=== PATIENT | female | born 1980 | race Caucasian/White ===

== ENCOUNTER 2017-10-05 02:39 | Emergency (ER) | payer OTHER ==
[~2017-10-05] VITALS: Ht 172.7 cm; Wt 68.0 kg
[~2017-10-05 02:39] MED LIST: CALCA500S6 PO; EPIN.3I IM; PREN-16 PO; [UNRECOGNIZED DRUG - OTHER]
[2017-10-05] MEDS ORDERED: ALPR.5 PO (03:05)
[2017-10-05] MEDS ORDERED: PRED20 PO (03:06)
[2017-10-05] MEDS ORDERED: DIPH50 PO (03:08)
[2017-10-05 04:03] LABS: BASOPHILS ABSOLUTE AUTO 0.07 K/mm3 (0.00-0.23); BASOPHILS PERCENT AUTO 1 % (0-2); EOSINOPHILS ABSOLUTE AUTO 0.12 K/mm3 (0.00-0.68); EOSINOPHILS PERCENT AUTO 2 % (0-6); Hematocrit 44.9 % (33.0-51.0); Hemoglobin 15.8 g/dL (11.5-16.0); IMMATURE GRAN ABSOLUTE AUTO 0.01 K/mm3 (0.00-0.10); IMMATURE GRAN PERCENT AUTO 0 % (0-1); LYMPHOCYTES ABSOLUTE AUTO 1.58 K/mm3 (0.84-5.20); LYMPHOCYTES PERCENT AUTO 23 % (21-46); MONOCYTES ABSOLUTE AUTO 0.39 K/mm3 (0.16-1.47); MONOCYTES PERCENT AUTO 6 % (4-13); Mean Corpuscular HGB 31.4 pg (26.0-34.0); Mean Corpuscular HGB Conc 35.2 g/dL (31.5-36.5); Mean Corpuscular Volume 89 fL (80-100); Mean Platelet Volume 10.4 fL (9.1-12.4); NEUTROPHILS ABSOLUTE AUTO 4.64 K/mm3 (1.96-9.15); NEUTROPHILS PERCENT AUTO 68 % (41-73); Platelet Count 177 K/mm3 (150-400); RDW Coefficient Variation 12.2 % (11.7-14.2); RDW Standard Deviation 40.1 fL (35.1-46.3); Red Blood Cell Count 5.03 M/mm3 (3.80-5.20); White Blood Cell Count 6.81 K/mm3 (4.00-11.30)
[2017-10-05 04:28] LABS: Alanine Aminotransfer (ALT/SGP 32 U/L (12-78); Albumin, Blood 4.1 g/dL (3.4-5.0); Albumin/Globulin Ratio 1.2 (0.8-1.8); Alk Phos 38 U/L (50-136); Anion Gap 11 mmol/L (6-16); Aspartate Aminotrans (AST/SGOT 22 U/L (12-37); Bilirubin, Total 0.5 mg/dL (0.1-1.0); Blood Urea Nitrogen 9 mg/dL (8-24); Bun/Creatinine Ratio 12.1 (12.0-20.0); CO2, Blood 23 mmol/L (21-32); Calcium, Blood 8.9 mg/dL (8.5-10.1); Chloride, Blood 107 mmol/L (98-108); Creatinine, Blood 0.75 mg/dL (0.40-1.00); Globulin, Blood 3.3 g/dL (2.2-4.0); Glomerular Filtration Rate >60 (60-); Glucose, Blood 91 mg/dL (70-99); Potassium, Blood 3.3 mmol/L (3.5-5.5); Sodium, Blood 141 mmol/L (136-145); Total Protein, Blood 7.4 g/dL (6.4-8.2); Troponin I <0.015 ng/mL (0.000-0.040)
== END 2017-10-05 05:00 | disposition home or self-care (01) ==
LOC: ER 02:39
PROVIDERS: Emergency Medicine
DX: J30.2 Other seasonal allergic rhinitis (principal); F41.9 Anxiety disorder, unspecified; F43.9 Reaction to severe stress, unspecified; Z88.0 Allergy status to penicillin; Z88.8 Allergy status to other drugs, medicaments and biological substances; Z79.899 Other long term (current) drug therapy; Z91.030 Bee allergy status; Z79.52 Long term (current) use of systemic steroids
CPT/HCPCS: 36415; 71046; 80053; 84484; 85025; 85379; 93005; 93010; 94640; 96374; 96375; 99283; J1100; J2060

== ENCOUNTER 2019-07-15 08:52 | Emergency (ER) | payer OTHER ==
[~2019-07-15] VITALS: Ht 172.7 cm; Wt 72.6 kg
[~2019-07-15 08:52] MED LIST changes: +ALPR.5 PO; +DIPH50 PO; +PRED20 PO
[2019-07-15 09:33] LABS: Source, Urine Clean Catch
[2019-07-15 09:41] LABS: Bilirubin, Urine Neg (Neg); Blood, Urine Neg (Neg); Glucose Qualitative, Urine Neg (Neg); Ketones, Urine Neg (Neg); Leukocyte Esterase, Urine Neg (Neg); Nitrite, Urine Neg (Neg); Protein, Urine Neg (Neg); Urobilinogen, Urine NORM (Normal)
[2019-07-15 09:42] LABS: Appearance, Urine Clear (Clear); Color, Urine Yellow (P-Yellow)
[2019-07-15 09:50] LABS: BASOPHILS ABSOLUTE AUTO 0.02 K/mm3 (0.00-0.23); BASOPHILS PERCENT AUTO 0 % (0-2); EOSINOPHILS PERCENT AUTO 3 % (0-6); Hematocrit 44.5 % (33.0-51.0); Hemoglobin 14.9 g/dL (11.5-16.0); IMMATURE GRAN ABSOLUTE AUTO 0.01 K/mm3 (0.00-0.10); IMMATURE GRAN PERCENT AUTO 0 % (0-1); LYMPHOCYTES ABSOLUTE AUTO 2.31 K/mm3 (0.84-5.20); LYMPHOCYTES PERCENT AUTO 36 % (21-46); MONOCYTES ABSOLUTE AUTO 0.48 K/mm3 (0.16-1.47); MONOCYTES PERCENT AUTO 8 % (4-13); Mean Corpuscular HGB 30.7 pg (26.0-34.0); Mean Corpuscular HGB Conc 33.5 g/dL (31.5-36.5); Mean Corpuscular Volume 92 fL (80-100); Mean Platelet Volume 10.8 fL (9.1-12.4); NEUTROPHILS ABSOLUTE AUTO 3.42 K/mm3 (1.96-9.15); NEUTROPHILS PERCENT AUTO 53 % (41-73); Platelet Count 217 K/mm3 (150-400); RDW Standard Deviation 40.6 fL (35.1-46.3); Red Blood Cell Count 4.86 M/mm3 (3.80-5.20); White Blood Cell Count 6.44 K/mm3 (4.00-11.30)
[2019-07-15 10:12] LABS: Alanine Aminotransfer (ALT/SGP 27 U/L (12-78); Albumin, Blood 3.6 g/dL (3.4-5.0); Albumin/Globulin Ratio 1.1 (0.8-1.8); Alk Phos 39 U/L (50-136); Anion Gap 5 mmol/L (6-16); Aspartate Aminotrans (AST/SGOT 26 U/L (12-37); Bilirubin, Total 0.6 mg/dL (0.1-1.0); Blood Urea Nitrogen 7 mg/dL (8-24); Bun/Creatinine Ratio 9.5 (12.0-20.0); CO2, Blood 25 mmol/L (21-32); Calcium, Blood 8.5 mg/dL (8.5-10.1); Chloride, Blood 110 mmol/L (98-108); Creatinine, Blood 0.74 mg/dL (0.40-1.00); Globulin, Blood 3.2 g/dL (2.2-4.0); Glomerular Filtration Rate >60 (60-); Glucose, Blood 103 mg/dL (70-99); Potassium, Blood 3.8 mmol/L (3.5-5.5); Sodium, Blood 140 mmol/L (136-145); Total Protein, Blood 6.8 g/dL (6.4-8.2)
[2019-07-15] MEDS ORDERED: ONDA4ODT MM (14:06)
[2019-07-15] MEDS ORDERED: Percocet 5-3251 EACH PO (14:06)
== END 2019-07-15 14:15 | disposition home or self-care (01) ==
LOC: ER 08:52
PROVIDERS: Emergency Medicine
DX: N83.01 Follicular cyst of right ovary (principal); N83.202 Unspecified ovarian cyst, left side; F41.9 Anxiety disorder, unspecified; F17.200 Nicotine dependence, unspecified, uncomplicated; Z79.899 Other long term (current) drug therapy
CPT/HCPCS: 36415; 74177; 76830; 76856; 80053; 81003; 81025; 83690; 85025; 96361; 96374-59; 96375; 96376; 99284-25; J1170; J2405; J2550; J7030; Q9967

== ENCOUNTER → 2019-08-27 | Outpatient (CLI) | payer OTHER ==
[~2019-08-27] MED LIST changes: +ONDA4ODT MM; +Percocet 5-3251 EACH PO
[2019-08-27 12:32] LABS: BASOPHILS ABSOLUTE AUTO 0.06 K/mm3 (0.00-0.23); BASOPHILS PERCENT AUTO 1 % (0-2); EOSINOPHILS ABSOLUTE AUTO 0.15 K/mm3 (0.00-0.68); EOSINOPHILS PERCENT AUTO 2 % (0-6); Hemoglobin 15.3 g/dL (11.5-16.0); IMMATURE GRAN ABSOLUTE AUTO 0.01 K/mm3 (0.00-0.10); IMMATURE GRAN PERCENT AUTO 0 % (0-1); LYMPHOCYTES ABSOLUTE AUTO 3.57 K/mm3 (0.84-5.20); LYMPHOCYTES PERCENT AUTO 42 % (21-46); MONOCYTES ABSOLUTE AUTO 0.56 K/mm3 (0.16-1.47); MONOCYTES PERCENT AUTO 7 % (4-13); Mean Corpuscular HGB 30.8 pg (26.0-34.0); Mean Corpuscular HGB Conc 34.8 g/dL (31.5-36.5); Mean Corpuscular Volume 89 fL (80-100); NEUTROPHILS ABSOLUTE AUTO 4.07 K/mm3 (1.96-9.15); NEUTROPHILS PERCENT AUTO 48 % (41-73); RDW Coefficient Variation 12.1 % (11.7-14.2); RDW Standard Deviation 39.3 fL (35.1-46.3); Red Blood Cell Count 4.97 M/mm3 (3.80-5.20); White Blood Cell Count 8.42 K/mm3 (4.00-11.30)
[2019-08-27 12:40] LABS: Mean Platelet Volume 13.8 fL (9.1-12.4)
[2019-08-27 12:56] LABS: Alanine Aminotransfer (ALT/SGP 27 U/L (12-78); Albumin/Globulin Ratio 1.2 (0.8-1.8); Alk Phos 41 U/L (40-126); Anion Gap 13 mmol/L (6-16); Aspartate Aminotrans (AST/SGOT 19 U/L (12-37); Bilirubin, Total 0.6 mg/dL (0.1-1.0); Blood Urea Nitrogen 12 mg/dL (8-24); Bun/Creatinine Ratio 16.9 (12.0-20.0); CO2, Blood 23 mmol/L (21-32); Calcium, Blood 9.7 mg/dL (8.5-10.1); Chloride, Blood 104 mmol/L (98-108); Creatinine, Blood 0.71 mg/dL (0.40-1.00); Globulin, Blood 3.4 g/dL (2.2-4.0); Glomerular Filtration Rate >60 (60-); Glucose, Blood 97 mg/dL (70-99); Potassium, Blood 3.4 mmol/L (3.5-5.5); Sodium, Blood 140 mmol/L (136-145); Thyroid Stimulating Hormone 1.658 uIU/mL (0.360-4.800); Total Protein, Blood 7.4 g/dL (6.4-8.2)
[2019-08-27 13:05] LABS: Troponin I <0.017 ng/mL (0.000-0.040)
[2019-08-27 15:18] LABS: Hematocrit 41.2 % (33.0-51.0); Hemoglobin 14.6 g/dL (11.5-16.0); Mean Corpuscular Volume 89 fL (80-100); Red Blood Cell Count 4.65 M/mm3 (3.80-5.20); White Blood Cell Count 7.56 K/mm3 (4.00-11.30)
[2019-08-27 15:19] LABS: Mean Corpuscular HGB 31.4 pg (26.0-34.0); Mean Corpuscular HGB Conc 35.4 g/dL (31.5-36.5); RDW Coefficient Variation 11.9 % (11.7-14.2); RDW Standard Deviation 38.8 fL (35.1-46.3)
[2019-08-27 15:20] LABS: Mean Platelet Volume 10.4 fL (9.1-12.4); Platelet Count 172 K/mm3 (150-400)
[2019-08-27 15:22] LABS: NEUTROPHILS PERCENT AUTO 60 % (41-73)
[2019-08-27 15:23] LABS: BASOPHILS PERCENT AUTO 1 % (0-2); EOSINOPHILS PERCENT AUTO 1 % (0-6); IMMATURE GRAN PERCENT AUTO 0 % (0-1); LYMPHOCYTES PERCENT AUTO 31 % (21-46); MONOCYTES PERCENT AUTO 7 % (4-13)
[2019-08-27 15:24] LABS: BASOPHILS ABSOLUTE AUTO 0.06 K/mm3 (0.00-0.23); IMMATURE GRAN ABSOLUTE AUTO 0.01 K/mm3 (0.00-0.10); LYMPHOCYTES ABSOLUTE AUTO 2.32 K/mm3 (0.84-5.20); MONOCYTES ABSOLUTE AUTO 0.55 K/mm3 (0.16-1.47); NEUTROPHILS ABSOLUTE AUTO 4.53 K/mm3 (1.96-9.15)
== END | disposition home or self-care (01) ==
LOC: LAB SHORT 12:23 → LAB EV 12:23
PROVIDERS: Physician Assistant
DX: R07.9 Chest pain, unspecified (principal); R53.83 Other fatigue
CPT/HCPCS: 80053; 83690; 84443; 84484; 85025; 85379

== ENCOUNTER 2020-02-14 10:21 | Day surgery (SDC) | payer OTHER ==
[~2020-02-14] VITALS: Ht 172.7 cm; Wt 78.2 kg
[~2020-02-14 10:21] MED LIST changes: +IBUP400 PO; +ONDA4ODT SL
[2020-02-14] MEDS ORDERED: SENNA LAXATIVE8.6 MG PO (11:11)
--- NOTE | 2020-02-14 13:48 | NUR ---
02/14/20 0018 Lelo Xiong PT C/O 8/10 BURNING PAIN ON BOTTOM SIDE OF OPERATIVE WRIST. PT TEARFUL. AFTER A TOTAL OF 250MCG OF FENTANYL (IN 50MCG DOSES) PT STATES PAIN NOW 4/10 AND TOLERABLE. PT MEDICATED WITH ORAL DOSE OF PERCOCET 5/325MG PER PHYSICIAN ORDERS AFTER EATING SOME CRACKERS. PT CALM NOW, IN ROOM. VSS. WILL CONTINUE TO MONITOR.
== END 2020-02-14 14:29 | disposition home or self-care (01) ==
LOC: ORSCSDS 10:21
PROVIDERS: Orthopaedic Surgery
PROC: 0PSJ04Z Reposition Left Radius with Internal Fixation Device, Open Approach (ICD-10-PCS; principal; 2020-02-14 11:30)
DX: S52.501A Unspecified fracture of the lower end of right radius, initial encounter for closed fracture (principal); S52.601A Unspecified fracture of lower end of right ulna, initial encounter for closed fracture; F17.210 Nicotine dependence, cigarettes, uncomplicated; Z79.899 Other long term (current) drug therapy
CPT/HCPCS: C1713; J0171; J1100; J1885; J2250; J2405; J2704; J3010; J3370; J7120

== ENCOUNTER 2021-01-30 23:55 | Inpatient (IN) | payer OTHER ==
[~2021-01-30] VITALS: Ht 172.7 cm; Wt 76.7 kg
[~2021-01-30 23:55] MED LIST changes: +SENNA LAXATIVE8.6 MG PO
[2021-01-31 00:49] LABS: BASOPHILS ABSOLUTE AUTO 0.01 K/mm3 (0.00-0.23); BASOPHILS PERCENT AUTO 0 % (0-2); EOSINOPHILS PERCENT AUTO 0 % (0-6); Hematocrit 37.4 % (33.0-51.0); Hemoglobin 12.6 g/dL (11.5-16.0); Mean Corpuscular HGB 30.4 pg (26.0-34.0); Mean Corpuscular HGB Conc 33.7 g/dL (31.5-36.5); Mean Corpuscular Volume 90 fL (80-100); Mean Platelet Volume 11.9 fL (9.1-12.4); Platelet Count 201 K/mm3 (150-400); RDW Coefficient Variation 12.7 % (11.7-14.2); RDW Standard Deviation 42.2 fL (35.1-46.3); Red Blood Cell Count 4.15 M/mm3 (3.80-5.20); White Blood Cell Count 8.31 K/mm3 (4.00-11.30)
[2021-01-31 00:52] LABS: IMMATURE GRAN ABSOLUTE AUTO 0.08 K/mm3 (0.00-0.10); IMMATURE GRAN PERCENT AUTO 1 % (0-1); LYMPHOCYTES PERCENT AUTO 11 % (21-46); MONOCYTES ABSOLUTE AUTO 0.61 K/mm3 (0.16-1.47); MONOCYTES PERCENT AUTO 7 % (4-13); NEUTROPHILS ABSOLUTE AUTO 6.71 K/mm3 (1.96-9.15); NEUTROPHILS PERCENT AUTO 81 % (41-73)
[2021-01-31 01:10] LABS: Troponin I <0.015 ng/mL (0.000-0.040)
[2021-01-31 01:15] LABS: Alanine Aminotransfer (ALT/SGP 36 U/L (12-78); Albumin, Blood 2.5 g/dL (3.4-5.0); Albumin/Globulin Ratio 0.6 (0.8-1.8); Alk Phos 71 U/L (50-136); Anion Gap 8 mmol/L (6-16); Aspartate Aminotrans (AST/SGOT 31 U/L (12-37); Bilirubin, Total <0.1 mg/dL (0.1-1.0); Blood Urea Nitrogen 10 mg/dL (8-24); Bun/Creatinine Ratio 17.8 (12.0-20.0); CO2, Blood 26 mmol/L (21-32); Calcium, Blood 8.5 mg/dL (8.5-10.1); Chloride, Blood 106 mmol/L (98-108); Creatinine, Blood 0.56 mg/dL (0.40-1.00); Glomerular Filtration Rate >60 (60-); Glucose, Blood 169 mg/dL (70-99); Potassium, Blood 3.5 mmol/L (3.5-5.5); Sodium, Blood 140 mmol/L (136-145); Total Protein, Blood 6.5 g/dL (6.4-8.2)
[2021-01-31] MEDS ORDERED: PRED1 PO (03:44)
[2021-01-31] MEDS ORDERED: IVERMECTIN3 MG PO (03:44)
[2021-01-31 05:07] LABS: Free Thyroxine 0.94 ng/dL (0.70-1.60); Thyroid Stimulating Hormone 0.788 uIU/mL (0.360-4.800)
[2021-01-31 08:14] LABS: Hematocrit 35.7 % (33.0-51.0); Hemoglobin 12.1 g/dL (11.5-16.0); Mean Corpuscular HGB 30.6 pg (26.0-34.0); Mean Corpuscular HGB Conc 33.9 g/dL (31.5-36.5); Mean Corpuscular Volume 90 fL (80-100); Mean Platelet Volume 12.1 fL (9.1-12.4); Platelet Count 206 K/mm3 (150-400); RDW Coefficient Variation 12.7 % (11.7-14.2); RDW Standard Deviation 42.4 fL (35.1-46.3); Red Blood Cell Count 3.95 M/mm3 (3.80-5.20); White Blood Cell Count 7.99 K/mm3 (4.00-11.30)
[2021-01-31 08:31] LABS: Alanine Aminotransfer (ALT/SGP 47 U/L (12-78); Albumin, Blood 2.5 g/dL (3.4-5.0); Albumin/Globulin Ratio 0.7 (0.8-1.8); Alk Phos 72 U/L (50-136); Anion Gap 6 mmol/L (6-16); Aspartate Aminotrans (AST/SGOT 44 U/L (12-37); Bilirubin, Total 0.1 mg/dL (0.1-1.0); Blood Urea Nitrogen 9 mg/dL (8-24); Bun/Creatinine Ratio 15.5 (12.0-20.0); CO2, Blood 26 mmol/L (21-32); Calcium, Blood 8.4 mg/dL (8.5-10.1); Chloride, Blood 110 mmol/L (98-108); Creatinine, Blood 0.58 mg/dL (0.40-1.00); Globulin, Blood 3.6 g/dL (2.2-4.0); Glomerular Filtration Rate >60 (60-); Glucose, Blood 109 mg/dL (70-99); Potassium, Blood 3.4 mmol/L (3.5-5.5); Sodium, Blood 142 mmol/L (136-145); Total Protein, Blood 6.1 g/dL (6.4-8.2)
[2021-01-31 08:48] LABS: BAND PERCENT MAN 1 % (0-8); BASOPHILS PERCENT MAN 0 % (0-2); EOSINOPHILS PERCENT MAN 0 % (0-6); LYMPHOCYTES ABSOLUTE MAN 1.19 K/mm3 (0.84-5.20); LYMPHOCYTES PERCENT MAN 15 % (21-46); MONOCYTES ABSOLUTE MAN 0.47 K/mm3 (0.16-1.47); MONOCYTES PERCENT MAN 6 % (4-13); MYELOCYTE ABSOLUTE MAN 0.07 K/mm3 (0.00-0.00); MYELOCYTE PERCENT MAN 1 % (0-0); NEUTROPHILS ABSOLUTE MAN 6.23 K/mm3 (1.96-9.15); SEG NEUTROPHILS PERCENT MAN 77 % (41-73); TOTAL CELLS COUNTED 100
--- NOTE | 2021-01-31 17:45 | NUR ---
SUMMARY PT CAME FROM [facility] AT 1130 WITH TEMP PACER TO [facility] AT 60CM. TEMP PACER WAS SET AT 40 WITH SENSITIVITY 2 AND OUTPUT 2 BUT HR STARTED DROPPING TO 37. PT WAS ASYMPTOMATIC BUT NO PACER SPIKES NOTED. CALLED DR. DUKE WHO CAME AND ADJUSTED IT TO ABOUT 45CM. NOW PACER IS CAPTURING WELL. PT RECEIVED A DOSE OF FENTANYL FOR PAIN. PT TRANSFERED TO PCU 12 ICU STATUS. REPORT GIVEN TO TAWANDA DUARTE.
--- NOTE | 2021-01-31 18:47 | NUR ---
ASSUMED CARE NOTE: ASSUMED CARE OF PT AT 1700, RECEVIED REPORT FROM MARILY DUARTE. PT IS ALERT AND ORIENTEDX4. PT HAS TEMP PACEMAKER STTINGS OF 6, SENSITIVITY 2, RATE 40. BP STABLE AT THIS TIME. TEMP PACEMAKER TO RIGHT SIDE, DRESSING C/D/I, NO SWELLING, OR OOZING TO SITE. PT IS ON RA, WITH SPO2 ABOVE 90% NO RESP DISTRESS NOTED. PT MEDICATED FOR PAIN BEFORE ARRIVING TO UNIT, STATES PAIN IS 3/10 AT THIS TIME. PT ORIENTED TO ROOM, BED AT LOWEST LEVEL, CALL LIGHT WITHIN REACH.
[2021-02-01 03:52] LABS: Hematocrit 37.8 % (33.0-51.0); Mean Corpuscular HGB 30.5 pg (26.0-34.0); Mean Corpuscular HGB Conc 34.4 g/dL (31.5-36.5); Mean Corpuscular Volume 89 fL (80-100); Platelet Count 249 K/mm3 (150-400); RDW Coefficient Variation 12.9 % (11.7-14.2); RDW Standard Deviation 41.7 fL (35.1-46.3); Red Blood Cell Count 4.26 M/mm3 (3.80-5.20); White Blood Cell Count 8.44 K/mm3 (4.00-11.30)
[2021-02-01 04:15] LABS: Albumin, Blood 2.6 g/dL (3.4-5.0); Anion Gap 7 mmol/L (6-16); Blood Urea Nitrogen 13 mg/dL (8-24); Bun/Creatinine Ratio 20.8 (12.0-20.0); CO2, Blood 27 mmol/L (21-32); Calcium, Blood 8.3 mg/dL (8.5-10.1); Chloride, Blood 106 mmol/L (98-108); Creatinine, Blood 0.63 mg/dL (0.40-1.00); Glomerular Filtration Rate >60 (60-); Glucose, Blood 114 mg/dL (70-99); Phosphorus, Blood 3.1 mg/dL (2.5-4.9); Potassium, Blood 3.9 mmol/L (3.5-5.5); Sodium, Blood 140 mmol/L (136-145); Troponin I <0.015 ng/mL (0.000-0.040)
[2021-02-01 06:15] LABS: BAND PERCENT MAN 1 % (0-8); BASOPHILS PERCENT MAN 0 % (0-2); EOSINOPHILS PERCENT MAN 0 % (0-6); LYMPHOCYTES % ATYPICAL MANUAL 1 % (0-0); LYMPHOCYTES ABSOLUTE MAN 1.51 K/mm3 (0.84-5.20); LYMPHOCYTES PERCENT MAN 17 % (21-46); MONOCYTES ABSOLUTE MAN 0.67 K/mm3 (0.16-1.47); MONOCYTES PERCENT MAN 8 % (4-13); MYELOCYTE ABSOLUTE MAN 0.08 K/mm3 (0.00-0.00); MYELOCYTE PERCENT MAN 1 % (0-0); NEUTROPHILS ABSOLUTE MAN 6.16 K/mm3 (1.96-9.15); SEG NEUTROPHILS PERCENT MAN 72 % (41-73); TOTAL CELLS COUNTED 100
--- NOTE | 2021-02-01 06:54 | NUR ---
SHIFT SUMMARY PT RESTED THROUGHOUT NIGHT, PRN FENTANYL ADMINISTERED FOR PAIN, HEATED KPAD APPLIED TO BACK WITH GOOD EFFECT. PT ORIENTED x4, PT IS ANXIOUS AND DEPRESSED, TEARFUL AT TIMES, EXPRESSES MISSING HER KIDS AND WORRIED ABOUT PROGNOSIS OF CURRENT CONDITION. O2 SATURATIONS> 90% ON RA. MONITOR SHOWS OCCASSIONALLY PACED RHYTHM, HR 40-45, BP STABLE, PT DENIES CP AND SOB BREATH, REMAINS FATIGUED. [facility] TEMP PACER SITE STABLE, DRESSING C/D/I. PT TOLERATING PO INTAKE, NO BM THIS SHIFT. PT USES BEDPAN TO VOID WITH ASSISTANCE. CALL LIGHT WITHIN REACH, PT USING [facility].
--- NOTE | 2021-02-01 07:15 | NUR ---
Assumed care of pt at 0700 from Blanca DUARTE.
--- NOTE | 2021-02-01 13:30 | NUR ---
Dr Van in to see pt. States pt is okay for out of bed activity. Additionally, he changed pacemaker rate to 30 BPM. Currently, pt's HR is 50s. This RN assisted pt to sit up in chair, pt tolerated well.
--- NOTE | 2021-02-01 18:24 | NUR ---
SUMMARY Pt A&O x 4. Answers questions, follows commands, verbalizes needs. Pleasant and cooperative with care. OOB for about 3 hours this shift to sit in chair. Tolerates activity well with verbal cues and one person assist. Pt has temporary pacemaker in place. mA 6, sensitivity 2, rate has been decreased down to [address] Van. Few pacer spikes noted on telemetry. Rate 40s-50s. Overall, pt feeling weak but free of lightheadedness and dizzinesss. BP stable. Pt on room air. Bed in lowest position. Call light in reach. Pt denies need at this time.
--- NOTE | 2021-02-01 21:00 | NUR ---
ASSUMPTION OF CARE PT AWAKE IN BED, APPEARS IN MUCH BETTER SPIRITS, PT COMMENTED THAT SHE WAS HAPPY TO BE ABLE TO SEE HER TODAY AND GET UP OUT OF BED. PT REMAINS ORIENTED x4, CALM AND COOPERATIVE, REPORTS PAIN IS MUCH IMPROVED. O2 SATURATIONS REMAIN> 90% ON RA. MONITOR SHOWS SINUS RHYTHM WITH HR 40'S-50'S, NO PACED BEATS AT THIS TIME. TEMPORARY PACER TO [facility] REMAINS IN PLACE, OUT APPROX 40-45cm, GAUZE AND TEGADERM DRESSING REMAINS IN PLACE. PACER SET TO mA 6, SENSITIVITY 2 AND RATE 30. PT DENIES CP/SOB, CONTINUES TO FEEL WEAK AND FATIGUED BUT OVERALL STS SHE FEELS THAT SHE'S IMPROVING. PT TOLERATING PO INTAKE, UP TO BSC TO VOID. CALL LIGHT WITHIN REACH, PT USING APPROPRIATELY.
--- NOTE | 2021-02-02 06:33 | NUR ---
SHIFT SUMMARY PT SLEPT VERY LITTLE THIS SHIFT, REMAINS ORIENTED x4, ANXIOUS AT TIMES. PT REMAINS ON ROOM AIR. PTS HR INITIALLY SUSTAINED IN THE 40'S-50'S, WHILE SLEEPING HR DECREASED AND SUSTAINED 35-40. RIJ TEMP REMAINS IN PLACE, DRESSING C/D/I. PT TOLERATING PO INTAKE. PT ONE PERSON ASSIST TO CHAIR AND BSC. CALL LIGHT WITHIN REACH, PT USING APPROPRIATELY.
--- NOTE | 2021-02-02 07:15 | NUR ---
Assumed care of pt at 0700. Report received from Blanca DUARTE. Pt ICU status due to transvenous pacemaker, however in room PCU 12.
--- NOTE | 2021-02-02 17:00 | NUR ---
Dr Van in to see pt. Provider removed pacemaker wire and sheath from RIJ. Pt tolerated well. Pressure held for 10 mins. Dressed with sterile gauze and tegaderm.
--- NOTE | 2021-02-02 18:30 | NUR ---
SUMMARY Pt A&O x 4. Answers questions. Follows commands. Verbalizes needs. Pleasant and cooperative with care. Pt on room air. SpO2 90% or greater. SB-SR per monitor. No pacemaker spikes noted this shift. Dr Van removed pacemaker wire and sheath from pt. Pt tolerated this well. Pt's mom in to see pt and visit today. Pt OOB several times to sit in chair and use BSC. Bed in lowest position. Call light in reach. Pt denies need at this time.
--- NOTE | 2021-02-03 05:57 | NUR ---
SHIFT SUMMARY PT REPORTS NOT SLEEPING WELL, PT IS ANXIOUS TO BE ABLE TO GO HOME. PT REMAINS ALERT AND ORIENTED, CALM AND COOPERATIVE. O2 SATURATIONS> 90% ON RA. MONITOR SHOWS SINUS RHYTHM HR 50'S-60'S WHILE AWAKE AND 40'S WHILE RESTING. PT DENIES CP BUT REPORTS A MILD CHEST DISCOMFORT, DENIES SOB. PTS STRENGTH IMPROVING, SBA TO BSC. PT TOLERATING PO INTAKE, REPORTS CONSTIPATION, DENIES ISSUES.
--- NOTE | 2021-02-03 07:30 | NUR ---
Assumed care of pt at 0700 from Blanca DUARTE. Pt ICU status, currently in room PCU 12. Awaiting plan from hospitalist for potential discharge today.
--- NOTE | 2021-02-03 10:52 | NUR ---
Dr Nowak in to see patient. Provider stated pt will discharge home today.
[2021-02-03] MEDS ORDERED: Acetaminophen650 M1 PO (12:19)
--- NOTE | 2021-02-03 12:48 | NUR ---
Discharge education given to patient and her spouse. States she plans on establishing primary care provider as Dr Lisa Edwards. States understanding to stop prednisone and ivermectin. Educated on wound care for right neck s/p venous sheath removal from right IJ on 02/02. IV access removed. Tele mario'ericka.
--- NOTE | 2021-02-03 13:07 | NUR ---
Pt departed from unit at 1258 via wheelchair, accompanied by spouse and Sheila DUARTE
== END 2021-02-03 13:00 | disposition home or self-care (01) | DRG 177 ==
LOC: ER 23:55 → ERHOLD 01-31 03:31 → ICUE 01-31 11:22 → PCU 01-31 17:45
PROVIDERS: Emergency Medicine; Family Medicine; Internal Medicine Cardiovascular Disease; Student in an Organized Health Care Education/Training Program; ADMIT Internal Medicine
PROC: 8E0ZXY6 Isolation (ICD-10-PCS; principal; 2021-01-31)
PROC: 5A1223Z Performance of Cardiac Pacing, Continuous (ICD-10-PCS; 2021-01-31)
PROC: 02HK3JZ Insertion of Pacemaker Lead into Right Ventricle, Percutaneous Approach (ICD-10-PCS; 2021-01-31)
PROC: 3E0333Z Introduction of Anti-inflammatory into Peripheral Vein, Percutaneous Approach (ICD-10-PCS; 2021-01-31)
PROC: XW033E5 Introduction of Remdesivir Anti-infective into Peripheral Vein, Percutaneous Approach, New Technology Group 5 (ICD-10-PCS; 2021-01-31)
DX: U07.1 COVID-19 (principal); J12.82 Pneumonia due to coronavirus disease 2019; J96.01 Acute respiratory failure with hypoxia; R00.1 Bradycardia, unspecified; E87.6 Hypokalemia; K21.9 Gastro-esophageal reflux disease without esophagitis; F41.9 Anxiety disorder, unspecified; F17.210 Nicotine dependence, cigarettes, uncomplicated; Z98.890 Other specified postprocedural states; Z88.0 Allergy status to penicillin; Z79.899 Other long term (current) drug therapy; Z88.1 Allergy status to other antibiotic agents; Z91.038 Other insect allergy status
CPT/HCPCS: 33210; 36415; 71260; 80053; 80069; 83880; 84439; 84443; 84484; 85025; 93005; 93010; 93306; 99285-25; A9270; C1769; C1887; C1894; J1100; J1644; J1650; J2250; J2405; J3010; J7030; J7040; Q9967

== ENCOUNTER 2022-08-30 23:29 | Emergency (ER) | payer OTHER ==
[~2022-08-30] VITALS: Ht 172.7 cm; Wt 77.1 kg
[~2022-08-30 23:29] MED LIST changes: +Acetaminophen650 M1 PO; +IVERMECTIN3 MG PO; +PRED1 PO
[2022-08-31 00:13] LABS: BASOPHILS ABSOLUTE AUTO 0.04 K/mm3 (0.00-0.23); BASOPHILS PERCENT AUTO 1 % (0-2); EOSINOPHILS ABSOLUTE AUTO 0.07 K/mm3 (0.00-0.68); EOSINOPHILS PERCENT AUTO 1 % (0-6); Hematocrit 43.5 % (33.0-51.0); Hemoglobin 15.3 g/dL (11.5-16.0); IMMATURE GRAN ABSOLUTE AUTO 0.01 K/mm3 (0.00-0.10); IMMATURE GRAN PERCENT AUTO 0 % (0-1); LYMPHOCYTES PERCENT AUTO 52 % (21-46); MONOCYTES ABSOLUTE AUTO 0.59 K/mm3 (0.16-1.47); MONOCYTES PERCENT AUTO 7 % (4-13); Mean Corpuscular HGB Conc 35.2 g/dL (31.5-36.5); Mean Corpuscular Volume 85 fL (80-100); Mean Platelet Volume 10.9 fL (9.1-12.4); NEUTROPHILS ABSOLUTE AUTO 3.19 K/mm3 (1.96-9.15); NEUTROPHILS PERCENT AUTO 39 % (41-73); Platelet Count 255 K/mm3 (150-400); RDW Coefficient Variation 12.1 % (11.7-14.2); RDW Standard Deviation 37.8 fL (35.1-46.3)
[2022-08-31 00:31] LABS: Albumin, Blood 4.2 g/dL (3.4-5.0); Albumin/Globulin Ratio 1.2 (0.8-1.8); Bilirubin, Total 0.4 mg/dL (0.1-1.0); Bun/Creatinine Ratio 9.3 (12.0-20.0); Calcium, Blood 9.4 mg/dL (8.5-10.1); Creatinine, Blood 0.65 mg/dL (0.40-1.00); Globulin, Blood 3.5 g/dL (2.2-4.0); Potassium, Blood 3.7 mmol/L (3.5-5.5); Total Protein, Blood 7.7 g/dL (6.4-8.2)
== END 2022-08-31 01:38 | disposition home or self-care (01) ==
LOC: ER 23:29
PROVIDERS: Emergency Medicine
DX: I47.1 Supraventricular tachycardia (principal); R07.9 Chest pain, unspecified; F17.210 Nicotine dependence, cigarettes, uncomplicated; Z88.0 Allergy status to penicillin; Z91.040 Latex allergy status; Z91.030 Bee allergy status
CPT/HCPCS: 36415; 71045; 80053; 84484; 85025; 93005; 93010; 96374; 99285-25; A9270; J1885

== ENCOUNTER 2022-12-20 23:02 | Observation (INO) | payer OTHER ==
[~2022-12-20] VITALS: Ht 172.7 cm; Wt 74.6 kg
[2022-12-20 23:33] LABS: BASOPHILS ABSOLUTE AUTO 0.04 K/mm3 (0.00-0.23); BASOPHILS PERCENT AUTO 1 % (0-2); EOSINOPHILS ABSOLUTE AUTO 0.16 K/mm3 (0.00-0.68); EOSINOPHILS PERCENT AUTO 2 % (0-6); Hematocrit 44.3 % (33.0-51.0); Hemoglobin 15.4 g/dL (11.5-16.0); IMMATURE GRAN ABSOLUTE AUTO 0.01 K/mm3 (0.00-0.10); IMMATURE GRAN PERCENT AUTO 0 % (0-1); LYMPHOCYTES ABSOLUTE AUTO 4.36 K/mm3 (0.84-5.20); LYMPHOCYTES PERCENT AUTO 50 % (21-46); MONOCYTES ABSOLUTE AUTO 0.49 K/mm3 (0.16-1.47); MONOCYTES PERCENT AUTO 6 % (4-13); Mean Corpuscular HGB Conc 34.8 g/dL (31.5-36.5); Mean Corpuscular Volume 86 fL (80-100); Mean Platelet Volume 11.4 fL (9.1-12.4); NEUTROPHILS PERCENT AUTO 42 % (41-73); Platelet Count 218 K/mm3 (150-400); RDW Standard Deviation 38.5 fL (35.1-46.3); Red Blood Cell Count 5.14 M/mm3 (3.80-5.20); White Blood Cell Count 8.76 K/mm3 (4.00-11.30)
[2022-12-20 23:53] LABS: Albumin/Globulin Ratio 1.2 (0.8-1.8); Bun/Creatinine Ratio 8.2 (12.0-20.0); Calcium, Blood 9.1 mg/dL (8.5-10.1); Creatinine, Blood 0.73 mg/dL (0.40-1.00); Globulin, Blood 3.4 g/dL (2.2-4.0); Potassium, Blood 3.4 mmol/L (3.5-5.5); Total Protein, Blood 7.4 g/dL (6.4-8.2)
[2022-12-21 02:26] LABS: Thyroid Stimulating Hormone 8.2 uIU/mL (0.360-4.800)
[2022-12-21 03:08] VITALS: BP 120/74
--- NOTE | 2022-12-21 06:15 | NUR ---
SHIFT SUMMARY PT ARRIVED ON UNIT AT 0307. PT ORIENTED TO UNIT AND CALL PE[place]. SB ON TELE HR 40-50'S, NO C/O PAIN. FIRE SAFETY EDUCATION PROVIDED TO PATIENT, PT DOES NOT HAVE ANY SOURCES OF IGNITION. Q1H FIRE SAFETY CHECKS COMPLETED. AT BEDSIDE
[2022-12-21 07:54] VITALS: BP 122/81
[2022-12-21 11:36] LABS: Albumin, Blood 3.8 g/dL (3.4-5.0); Albumin/Globulin Ratio 1.2 (0.8-1.8); Bilirubin, Total 0.9 mg/dL (0.1-1.0); Bun/Creatinine Ratio 8.4 (12.0-20.0); Creatinine, Blood 0.72 mg/dL (0.40-1.00); Free Thyroxine 1.18 ng/dL (0.70-1.60); Globulin, Blood 3.1 g/dL (2.2-4.0); Potassium, Blood 3.8 mmol/L (3.5-5.5); Total Protein, Blood 6.9 g/dL (6.4-8.2)
[2022-12-21 16:09] VITALS: BP 118/91
--- NOTE | 2022-12-21 16:21 | NUR ---
SHIFT SUMMARY PATIENT IS ALERT AND ORIENTED. PATIENT HAS HAD NO ACUTE EVENTS THIS SHIFT. VITAL SIGNS REVIEWED. PATIENT HAS TELE ON AND HAS BEEN SINUS VINAY MOST OF SHIFT. PATIENT HAS BEEN WAITING FOR ECHO AND STRESS TEST SINCE MORNING. PATIENT HAS NOT COMPLAINED OF PAIN, SOB, NAUSEA OR VOMITTING. PATIENTS HAS BEEN WITH PATIENT MOST OF SHIFT. BED IN LOCKED AND LOWEST POSITION.CALL LIGHT IN PLACE WILL MONITOR UNTIL SHIFT CHANGE.
[2022-12-22 03:07] VITALS: BP 106/73
[2022-12-22 05:22] LABS: CHOL/HDL RATIO 4.6; Cholesterol 192 mg/dL (50-200); HDL Cholesterol 42 mg/dL (>39); LDL/HDL RATIO 2.9; Low Density Lipoprotein Chol 121 mg/dL (0-110); Triglycerides 144 mg/dL (30-160); Very Low Density Lipoprot Chol 28 mg/dL (6-32)
[2022-12-22 05:39] LABS: BASOPHILS ABSOLUTE AUTO 0.03 K/mm3 (0.00-0.23); BASOPHILS PERCENT AUTO 1 % (0-2); EOSINOPHILS ABSOLUTE AUTO 0.16 K/mm3 (0.00-0.68); EOSINOPHILS PERCENT AUTO 3 % (0-6); Hematocrit 45.3 % (33.0-51.0); Hemoglobin 15.7 g/dL (11.5-16.0); IMMATURE GRAN ABSOLUTE AUTO 0.01 K/mm3 (0.00-0.10); IMMATURE GRAN PERCENT AUTO 0 % (0-1); LYMPHOCYTES ABSOLUTE AUTO 2.68 K/mm3 (0.84-5.20); LYMPHOCYTES PERCENT AUTO 43 % (21-46); MONOCYTES ABSOLUTE AUTO 0.51 K/mm3 (0.16-1.47); MONOCYTES PERCENT AUTO 8 % (4-13); Mean Corpuscular HGB 30.1 pg (26.0-34.0); Mean Corpuscular HGB Conc 34.7 g/dL (31.5-36.5); Mean Corpuscular Volume 87 fL (80-100); Mean Platelet Volume 11.4 fL (9.1-12.4); NEUTROPHILS ABSOLUTE AUTO 2.81 K/mm3 (1.96-9.15); NEUTROPHILS PERCENT AUTO 45 % (41-73); Platelet Count 179 K/mm3 (150-400); RDW Coefficient Variation 12.1 % (11.7-14.2); RDW Standard Deviation 38.8 fL (35.1-46.3); Red Blood Cell Count 5.21 M/mm3 (3.80-5.20)
[2022-12-22 05:47] LABS: Anion Gap 6 mmol/L (6-16); Blood Urea Nitrogen 10 mg/dL (8-24); Bun/Creatinine Ratio 11.1 (12.0-20.0); CO2, Blood 24 mmol/L (21-32); Calcium, Blood 9.3 mg/dL (8.5-10.1); Chloride, Blood 109 mmol/L (98-108); Glomerular Filtration Rate 81 (60-); Glucose, Blood 103 mg/dL (70-99); Potassium, Blood 4.4 mmol/L (3.5-5.5); Sodium, Blood 139 mmol/L (136-145)
--- NOTE | 2022-12-22 06:13 | NUR ---
SHIFT SUMMARY NO EVENTS OVERNIGHT. PT MONITORED ON TELE AND WAS NSR OR SB. NO C/O PAIN. SLEPT ENTIRE NIGHT. Q1H FIRE SAFETY CHECKS COMPLETED, NO IGNITON SOURCES FOUND.
[2022-12-22 08:13] VITALS: BP 125/84
[2022-12-22 14:59] VITALS: BP 112/78
--- NOTE | 2022-12-22 16:46 | NUR ---
DISCHARGE SUMMARY PATIENT IS ALERT AND ORIENTED. PATIENT HAS HAD NO ACUTE EVENTS THIS SHIFT. PATIENT HAS HAD AN ECHO AND STRESS DONE TODAY. PATIENT WAS CLEARED BY CARDIOLOGY TO BE DISCHARGED. PATIENT WAS TO HAVE ZIO PATCH PLACED IN PATIENT TODAY BUT NOBODY HERE TO PLACE TODAY. PATIENT WAS ADVISED TO COME TO [facility] TO HAVE PLACED TOMORROW. FACESHEET AND ORDER FAXED TO [facility]. PATIENT HAS NOT COMPLAINED OF PAIN, NAUSEA, SOB OR VOMITTING THIS SHIFT.
[2022-12-23 06:12] LABS: HEMOGLOBIN A1C 5.5 % (4.8-5.6)
== END 2022-12-22 16:02 | disposition home or self-care (01) ==
LOC: ER 23:02 → MEDS 23:03
PROVIDERS: Emergency Medicine; Internal Medicine; Student in an Organized Health Care Education/Training Program; ADMIT Student in an Organized Health Care Education/Training Program
DX: R00.1 Bradycardia, unspecified (principal); R51.9 Headache, unspecified; E87.6 Hypokalemia; R94.6 Abnormal results of thyroid function studies; F17.290 Nicotine dependence, other tobacco product, uncomplicated; Z86.16 Personal history of COVID-19; Z88.0 Allergy status to penicillin; Z88.8 Allergy status to other drugs, medicaments and biological substances; Z79.899 Other long term (current) drug therapy
CPT/HCPCS: 36415; 71046; 80048; 80053; 80061; 83036; 83880; 84439; 84443; 84484; 85025; 93005; 93010; 93017; 93306; 96372; 99285-25; A9270; G0378; J1650

== ENCOUNTER 2023-06-08 02:47 | Emergency (ER) | payer OTHER ==
[~2023-06-08] VITALS: Ht 172.7 cm; Wt 73.5 kg
[2023-06-08 02:54] VITALS: BP 148/98
[2023-06-08 03:29] LABS: BASOPHILS ABSOLUTE AUTO 0.05 K/mm3 (0.00-0.23); BASOPHILS PERCENT AUTO 1 % (0-2); EOSINOPHILS ABSOLUTE AUTO 0.04 K/mm3 (0.00-0.68); EOSINOPHILS PERCENT AUTO 0 % (0-6); Hematocrit 44.5 % (33.0-51.0); Hemoglobin 15.3 g/dL (11.5-16.0); IMMATURE GRAN ABSOLUTE AUTO 0.02 K/mm3 (0.00-0.10); IMMATURE GRAN PERCENT AUTO 0 % (0-1); LYMPHOCYTES ABSOLUTE AUTO 3.15 K/mm3 (0.84-5.20); LYMPHOCYTES PERCENT AUTO 35 % (21-46); MONOCYTES ABSOLUTE AUTO 0.39 K/mm3 (0.16-1.47); MONOCYTES PERCENT AUTO 4 % (4-13); Mean Corpuscular HGB 29.6 pg (26.0-34.0); Mean Corpuscular HGB Conc 34.4 g/dL (31.5-36.5); Mean Corpuscular Volume 86 fL (80-100); Mean Platelet Volume 11.1 fL (9.1-12.4); NEUTROPHILS ABSOLUTE AUTO 5.39 K/mm3 (1.96-9.15); NEUTROPHILS PERCENT AUTO 60 % (41-73); Platelet Count 263 K/mm3 (150-400); RDW Coefficient Variation 12.1 % (11.7-14.2); RDW Standard Deviation 38.6 fL (35.1-46.3); Red Blood Cell Count 5.17 M/mm3 (3.80-5.20); White Blood Cell Count 9.04 K/mm3 (4.00-11.30)
[2023-06-08 03:46] LABS: Albumin, Blood 4.2 g/dL (3.4-5.0); Albumin/Globulin Ratio 1.2 (0.8-1.8); Bilirubin, Total 0.2 mg/dL (0.1-1.0); Calcium, Blood 8.9 mg/dL (8.5-10.1); Creatinine, Blood 0.72 mg/dL (0.40-1.00); Globulin, Blood 3.6 g/dL (2.2-4.0); Potassium, Blood 3.2 mmol/L (3.5-5.5); Total Protein, Blood 7.8 g/dL (6.4-8.2)
== END 2023-06-08 04:02 | disposition home or self-care (01) ==
LOC: ER 02:47
PROVIDERS: Emergency Medicine
DX: I48.91 Unspecified atrial fibrillation (principal); F10.129 Alcohol abuse with intoxication, unspecified; F17.200 Nicotine dependence, unspecified, uncomplicated; Y90.6 Blood alcohol level of 120-199 mg/100 ml; Z91.030 Bee allergy status; Z88.0 Allergy status to penicillin; Z88.1 Allergy status to other antibiotic agents; Z91.040 Latex allergy status
CPT/HCPCS: 80053; 84484; 85025; 93005; 93010; 99284-25

== ENCOUNTER 2023-09-22 18:27 | Emergency (ER) | payer OTHER ==
[~2023-09-22] VITALS: Ht 172.7 cm; Wt 71.7 kg
[2023-09-22] MEDS ORDERED: SERT50 PO (19:07)
[2023-09-22 19:13] VITALS: BP 118/92
== END 2023-09-22 19:12 | disposition home or self-care (01) ==
LOC: ER 18:27
DX: I47.10 Supraventricular tachycardia, unspecified (principal)
CPT/HCPCS: 93005; 93010; 99284-25